=== PATIENT | female | born 1965 | race Hispanic/Latino ===

== ENCOUNTER 2025-01-21 15:55 | Emergency (ER) | payer SELFPAY ==
[~2025-01-21] VITALS: Ht 149.9 cm; Wt 45.4 kg
[2025-01-21 16:43] LABS: IMMATURE GRANULOCYTE ABSOLUTE 0.01 K/uL (0-1); NUCLEATED RED BLOOD CELLS 0.0 % (0.0-0.19); PLATELET COUNT (AUTO) 208 K/uL (130-400); RED BLOOD CELL COUNT(AUTO) 4.41 MIL/uL (4.00-5.50); RED CELL DISTRIBUTION WIDTH 13.1 % (11.0-15.5); WHITE BLOOD COUNT (AUTO) 4.5 K/uL (4.8-10.8)
[2025-01-21 16:59] LABS: CREATININE 0.5 mg/dL (0.5-1.0); GLOMERULAR FILTR. RATE CALC 108.0 mL/min (>90); GLUCOSE,RANDOM 233.0 mg/dL (70-105); SODIUM SERUM 137.0 mmol/L (136-145); UREA NITROGEN, BLOOD 18.0 mg/dL (7-18)
[2025-01-21 17:11] LABS: ASPARTATE AMINOTRANSFERASE 17.0 U/L (10-37); TOTAL PROTEIN, SERUM 7.2 g/dL (6.0-8.3)
[2025-01-21] MEDS ORDERED: IOHEXOL-350 75 ML VIAL IV ONE (17:46)
--- NOTE | 2025-01-21 19:25 | HMCIMG ---
CLINICAL INFORMATION Abdominal pain COMPARISON None. TECHNIQUE Volumetric helical CT images of the abdomen and pelvis with contrast FINDINGS Liver: Normal. Gallbladder: Surgically absent. Biliary System: Non-dilated. Pancreas: Normal. Spleen: Normal. Adrenals: Normal. Kidneys: 2.3 cm right renal cyst. No perinephric inflammation or hydronephrosis. Ureters: Normal. Bladder: Normal. Pelvis: Hysterectomy changes Stomach: Normal. Duodenum: Normal. Small Bowel: Normal. Colon: Normal. Appendix: Normal. Lymph Nodes: No lymphadenopathy. Peritoneum: No ascites or free air. Retroperitoneum: Normal. Vessels: Normal. Abdominal Wall: Normal. Bones: Normal. Lung Bases: Normal. Inferior Mediastinum: Normal. IMPRESSION No acute intra-abdominal findings. Status post cholecystectomy and hysterectomy. /[place]
[2025-01-21] MEDS ORDERED: DICY20TA2 PO (19:42)
--- NOTE | 2025-01-21 19:43 | ERN ---
ED Note History of Present Illness Stated Complaint: LLQ PAIN Chief Complaint: Abdominal Pain Time Seen by MD: 16:09 Time Seen by Midlevel: 16:11 Dictation: 59-year-old with no medical history coming in complaining of left upper and left lower abdominal pain and bloating. Patient states it has been going on for two weeks. Patient states she had a colon cleanse about one week ago then her symptoms were worsened so she went to [facility] one week ago where they did blood work and CT scan and told her everything was okay and discharged her. Parents states today she went to [place] where she was told by a doctor that she had an inflamed colon and needed to see a specialist. We then went to the urgent care today as well and was told that everything was normal, and then came here for another evaluation. Patient denies any fever, nausea or vomiting or diarrhea. Patient states her last menstrual bowel movement was yesterday and was soft, no blood. Patient states she is taking stool softeners. Allergies: Coded Allergies: No Known Allergies (Unverified Allergy, Unknown, 01/21/25) Past Medical History Past Medical History: Diabetes-Type II Surgical History: Hysterectomy, Cholecystectomy Surgical History Other: CYST Review of System Dictation Constitutional: Negative for fever,chills, and weight loss Eyes: Negative for injury, pain,redness, and discharge ENT: Negative for injury,pain or swelling Cardiovascular: Negative for chest pain, palpitations, and edema Respiratory: Negative for shortness of breath, cough, and wheezing, Abdomen/GI: Abdominal pain Back: Negative for injury and pain : Negative for injury, bleeding and discharge MS/Extremity: Negative for injury and deformity Skin: Negative for rash, and discoloration Neuro: Negative for headache, weakness, numbness, tingling, and seizure Psych: Negative for suicide ideation, homicidal ideation, and hallucinations Review of Systems: was completed Initial Vital Sign VS Vital Signs Date Time Temp Pulse Resp B/P (MAP) Pulse Ox O2 Delivery O2 Flow Rate FiO2 01/21/25 15:56 98.1 91 16 141/94 98 Room Air 0 01/21/25 18:22 21 Physical Exam Dictation General: awake, alert, NAD Head/Face: Normocephalic, atraumatic Eyes: PERRL, EOMI, vision at baseline ENT: oral cavity clear, TMs clear, no signs of infection Neck: Trachea midline, supple, no nuchal rigidity Cardiovascular: RRR, normal S1/S2, No MRGs, no JVD Respiratory: CTAB, no respiratory distress, No rales or wheezes Abdomen: Soft, non-tender, non-distended, normal bowel sounds, no guarding or rebound. Skin: Warm, dry, normal turgor, no rash MS/Extremity: Pulses equal, no cyanosis, neurovascular intact, FROM Neuro: COAx4, GCS 15, strength 5/5, CN 2-12 intact, normal cerebellar exam, normal gait, Psych: Normal behavior, mood, and affect normal Results (Laboratory/Radiology) Laboratory/Radiology Laboratory Tests Test 01/21/25 16:34 White Blood Count 4.5 K/uL (4.8-10.8) L Red Blood Count 4.41 MIL/uL (4.00-5.50) Hemoglobin 14.3 g/dL (12.0-16.0) Hematocrit 41.4 % (36-48) Mean Corpuscular Volume 93.9 fL (79-99) Mean Corpuscular Hemoglobin 32.4 pg (27.0-33.0) Mean Corpuscular Hemoglobin Concent 34.5 g/dL (32.0-36.0) Red Cell Distribution Width 13.1 % (11.0-15.5) Platelet Count 208 K/uL (130-400) Mean Platelet Volume 10.7 fL (7.5-10.5) H Immature Granulocyte % (Auto) 0.2 % (0-1) Neutrophils (%) (Auto) 44.1 % (40.0-77.0) Lymphocytes (%) (Auto) 46.1 % (21.0-51.0) Monocytes (%) (Auto) 7.4 % (3.0-13.0) Eosinophils (%) (Auto) 2.0 % (0.0-8.0) Basophils (%) (Auto) 0.2 % (0.0-5.0) Neutrophils # (Auto) 2.0 K/uL (1.8-7.7) Lymphocytes # (Auto) 2.1 K/uL (1.0-4.8) Monocytes # (Auto) 0.3 K/uL (0.1-1.0) Eosinophils # (Auto) 0.09 K/uL (0.00-0.70) Basophils # (Auto) 0.01 K/uL (0.00-0.20) Absolute Immature Granulocyte (auto 0.01 K/uL (0-1) Nucleated Red Blood Cells 0.0 % (0.0-0.19) Sodium Level 137 mmol/L (136-145) Potassium Level 4.2 mmol/L (3.5-5.1) Chloride Level 99 mmol/L (101-111) L Carbon Dioxide Level 27 mmol/L (21-32) Blood Urea Nitrogen 18 mg/dL (7-18) Creatinine 0.5 mg/dL (0.5-1.0) Glomerular Filtration Rate Calc 108 mL/min (>90) Random Glucose 233 mg/dL (70-105) H Total Calcium 9.3 mg/dL (8.5-10.1) Total Bilirubin 0.5 mg/dL (0.2-1.0) Aspartate Amino Transf (AST/SGOT) 17 U/L (10-37) Alanine Aminotransferase (ALT/SGPT) 30 U/L (12-78) Alkaline Phosphatase 110 U/L (50-136) Total Protein 7.2 g/dL (6.0-8.3) Albumin 3.6 g/dL (3.5-5.0) Labs Reviewed?: Yes CT Scan Comment: [place] [address] IMAGING REPORT Signed PATIENT: KRUNAL LEWIS MR#: [id number] : 1965 SEX: F AGE: 59 LOCATION: ED ORDER 18 STATUS: REG ER REPORT#: [id number] SERVICE [id number] REASON: lower upper and lower abdominal pain ORDERING PHYSICIAN: JEANNA DOWELL NP PROCEDURE: ABD PEL W - CT ABDOMEN/PELVIS W/CONTRAST CLINICAL INFORMATION Abdominal pain COMPARISON None. TECHNIQUE Volumetric helical CT images of the abdomen and pelvis with contrast FINDINGS Liver: Normal. Gallbladder: Surgically absent. Biliary System: Non-dilated. Pancreas: Normal. Spleen: Normal. Adrenals: Normal. Kidneys: 2.3 cm right renal cyst. No perinephric inflammation or hydronephrosis. Ureters: Normal. Bladder: Normal. Pelvis: Hysterectomy changes Stomach: Normal. Duodenum: Normal. Small Bowel: Normal. Colon: Normal. Appendix: Normal. Lymph Nodes: No lymphadenopathy. Peritoneum: No ascites or free air. Retroperitoneum: Normal. Vessels: Normal. Abdominal Wall: Normal. Bones: Normal. Lung Bases: Normal. Inferior Mediastinum: Normal. IMPRESSION No acute intra-abdominal findings. Status post cholecystectomy and hysterectomy. /[place] DICTATED BY: KILLIAN SHEETS MD DATE: 01/21/252023 ELECTRONICALLY SIGNED BY: KILLIAN SHEETS MD DATE: 01/21/252023 ED Course ED Course Orders Procedure Category Date Status Time Cbc With Differential LAB 01/21/25 Complete 16:17 Comprehensive LAB 01/21/25 Complete Metabolic Panel 16:17 Urinalysis Profile LAB 01/21/25 Logged 16:17 Ct Abdomen/Pelvis CT 01/21/25 Resulted W/Contrast 16:17 Iohexol (Omnipaque) PHA 01/21/25 Complete 17:46 Ondansetron 4mg Inj PHA 01/21/25 Complete (Zofran 4mg Inj) 17:56 Morphine 2mg Syg PHA 01/21/25 Complete (Morphine 2mg Syg) 17:56 Current Medications Medications (Trade) Dose Ordered Sig/Tyrone Route PRN Reason Start Time Stop Time Status Last Admin Dose Admin Iohexol (Omnipaque) 75 ml STK-MED ONCE IV 01/21/25 17:46 01/21/25 17:52 DC Morphine Sulfate (morPHINE 2MG SYG) 2 mg ONCE STAT IVP 01/21/25 17:56 01/21/25 18:01 DC 01/21/25 18:14 Ondansetron HCl (zoFRAN 4MG INJ) 4 mg ONCE STAT IVP 01/21/25 17:56 01/21/25 18:01 DC 01/21/25 18:14 Vital Signs Date Time Temp Pulse Resp B/P (MAP) Pulse Ox O2 Delivery O2 Flow Rate FiO2 01/21/25 18:22 98.1 98 18 131/65 98 Room Air* 0 21 01/21/25 15:56 98.1 91 16 141/94 98 Room Air 0 Medical Decision Making MDM MDM: 59-year-old with no medical history coming in complaining of left upper and left lower abdominal pain and bloating. Patient states it has been going on for two weeks. Patient states she had a colon cleanse about one week ago then her symptoms were worsened so she went to [facility] one week ago where they did blood work and CT scan and told her everything was okay and discharged her. Parents states today she went to [place] where she was told by a doctor that she had an inflamed colon and needed to see a specialist. We then went to the urgent care today as well and was told that everything was normal, and then came here for another evaluation. Patient denies any fever, nausea or vomiting or diarrhea. Patient states her last menstrual bowel movement was yesterday and was soft, no blood. Patient states she is taking stool softeners. CBC is unremarkable. Chemistry unremarkable. CT scan shows no acute abdominal pathology. Discussed findings with family member and patient. Discussed her next step is to follow up with a medical assistant ob gyn for further evaluation, she might need a colonoscopy. Educated on signs and symptoms of when to return back to the emergency room. Patient verbalized understanding, answered all questions. Differential diagnosis: Colitis, enteritis, SBO Rationale: Tests considered and ordered secondary to shared decision making include: Previous outside records reviewed: Old ER visits. Risk of complication and/or morbidity or mortality of patient management: None Medications-Per medication reconciliation Need for hospitalization: Patient does not meet criteria for hospitalization. Need for emergency major/minor surgery: No There are no social concerns with this patient. Prescription drug management Prescriptions will include symptomatic care Patient's prior external medical records from other ER visits were reviewed by me as indicated. Prior testing and results from previous visits were reviewed. Prior tests were taken into account with medical decision making and resource utilization, independent historian/historians were used to obtain complete medical history. I independently interpreted the test that were performed, results were reviewed by me and considered findings on radiology if ordered. Medical management and examination interpretation discussions were had by me with other qualified healthcare professionals as indicated for the patient's care. DX & DISP Disposition: Discharge Departure Impression: Primary Impression: Abdominal pain Condition: Stable Scripts Dicyclomine HCl (Bentyl) 20 Mg Tab 1 TAB PO BID PRN for PAIN for 10 Days, #20 TAB 0 Refills Prov: DOWELL,JEANNA INSULATION ENGINEMAN 01/21/25 Additional Instructions: Follow up with the specialists as needed. Referrals: SELF,REFERRAL (PCP) TRIPP PENDLETON MD Time of Disposition: 19:41 I have reviewed the case, and I agree with, Diagnosis and Plan JEANNA DOWELL NP Jan 21, 2025 19:43
[2025-01-21 20:17] VITALS: BP 134/90; PULSE 77; RESP 18; TEMP 98.3; O2SAT 98
== END 2025-01-21 20:19 | disposition home or self-care (01) ==
LOC: EDH 15:55
DX: R10.32 Left lower quadrant pain (principal); E11.9 Type 2 diabetes mellitus without complications; Z90.49 Acquired absence of other specified parts of digestive tract; Z90.710 Acquired absence of both cervix and uterus
CPT/HCPCS: 99285; 74177; 96374; 96375; 80053; 85025; 36415; J2270; J2405; Q9967

== ENCOUNTER 2025-05-10 13:45 | Inpatient (IN) | payer BC ==
[~2025-05-10] VITALS: Ht 149.9 cm; Wt 46.9 kg
[~2025-05-10 13:45] MED LIST: DICY20TA2 PO
[2025-05-10 14:22] LABS: IMMATURE GRANULOCYTE ABSOLUTE 0.01 K/uL (0-1); NUCLEATED RED BLOOD CELLS 0.0 % (0.0-0.19); PLATELET COUNT (AUTO) 218 K/uL (130-400); RED BLOOD CELL COUNT(AUTO) 4.79 MIL/uL (4.00-5.50); RED CELL DISTRIBUTION WIDTH 13.0 % (11.0-15.5); WHITE BLOOD COUNT (AUTO) 5.9 K/uL (4.8-10.8)
[2025-05-10 14:33] LABS: CREATININE 0.6 mg/dL (0.5-1.0); GLOMERULAR FILTR. RATE CALC 103.0 mL/min (>90); GLUCOSE,RANDOM 162.0 mg/dL (70-105); SODIUM SERUM 136.0 mmol/L (136-145); UREA NITROGEN, BLOOD 15.0 mg/dL (7-18)
[2025-05-10 14:42] LABS: ASPARTATE AMINOTRANSFERASE 13.0 U/L (10-37); TOTAL PROTEIN, SERUM 7.3 g/dL (6.0-8.3)
[2025-05-10 15:10] LABS: APPEARANCE,URINE CLEAR (CLEAR); GLUCOSE, URINE (UA) >=1000 mg/dL (NEGATIVE); LEUKOCYTE ESTERASE ,URINE NEGATIVE Leu/uL (NEGATIVE); NITRATE,URINE NEGATIVE (NEGATIVE); OCCULT BLOOD,URINE NEGATIVE (NEGATIVE)
[2025-05-10 15:11] LABS: ADD UA MICROSCOPIC YES
[2025-05-10 15:12] LABS: SQUAMOUS EPITHELIAL CELL,UR RARE /HPF (0-2)
[2025-05-10] MEDS: 0.9%NACL 1000ML 1,000 ML IV ONE (15:13)
[2025-05-10] MEDS ORDERED: IOHEXOL-350 75 ML VIAL IV ONE (15:23)
--- NOTE | 2025-05-10 17:19 | HMCIMG ---
EXAMINATION: CT Abdomen and Pelvis with Intravenous Contrast CLINICAL INDICATION: Abdominal pain. TECHNIQUE: Contrast-enhanced CT of the abdomen and pelvis was performed. Axial images were acquired and reconstructed in multiplanar projections using soft tissue and bone algorithms. Delayed urographic phase images were obtained. RADIATION DOSE: CTDIvol: 11 mGy DLP: 500.9 mGycm COMPARISON: Prior CT abdomen and pelvis with contrast dated January 22, 2025, which demonstrated post-cholecystectomy and post-hysterectomy status without acute abnormality.FINDINGS: Lower Chest: No acute abnormality is identified in the visualized lung bases. Liver: The liver demonstrates diffuse fatty infiltration and is enlarged, measuring approximately 17.2 cm in the midclavicular line. A hyperenhancing lesion is again seen in the right hepatic lobe measuring approximately 1.5 1.6 1.2 cm, series 2, image 20/96. It is not visualized in the delayed images in the available field of view. No additional focal hepatic lesion is identified. Biliary System: Post-cholecystectomy state is noted. There is mild prominence of the bilobar intrahepatic bile ducts and the common bile duct, which measures up to 1.0 cm, with smooth distal tapering and no evidence of obstructing calculus or mass. These findings are favored to be physiologic in the post-cholecystectomy setting. Spleen: The spleen is unremarkable in size and attenuation. Pancreas: The pancreas is unremarkable without focal lesion or pancreatic ductal dilatation. Adrenal Glands: A left adrenal nodule measuring approximately 1.0 0.6 cm is present. The right adrenal gland is unremarkable. Kidneys and Urinary Tract: A right renal parapelvic cyst measures approximately 3.0 1.4 cm. No hydroureteronephrosis is seen. Delayed urographic phase images demonstrate normal and symmetric contrast excretion through both renal pelvicalyceal systems and ureters. No renal, ureteral, vesical calculus is identified. Bowel and Appendix: Multiple fluid-filled small bowel loops are present in the lower abdomen without significant dilatation, compatible with mild acute enteritis. A moderate amount of fecal material is present within the colon. The appendix is unremarkable, series 2, image 58/96. Mesentery and Peritoneal Cavity: No free intraperitoneal air or fluid is identified. Vasculature: The abdominal aorta demonstrates atheromatous calcification without aneurysm or dissection. Pelvic Organs: Post-hysterectomy status is noted. No adnexal mass is identified. Abdominal Wall: No significant abnormality is identified. Bones and Spine: There is minimal levoscoliosis of the lumbar spine with the apex at L3. Mild degenerative changes are present. Small central disc protrusions are seen at the L3L4, L4L5, and L5S1 levels, causing mild thecal sac indentation.IMPRESSION: * Mild acute enteritis. * Hyperenhancing lesion in the right hepatic lobe measuring 1.5 1.6 1.2 cm; imaging features are indeterminate. Further characterization with dedicated liver MRI is recommended if clinically warranted. * Post-cholecystectomy state with mild physiologic prominence of the intrahepatic bile ducts and common bile duct measuring up to 1.0 cm, without evidence of obstruction, stable compared with prior imaging. * Hepatic steatosis with hepatomegaly. * Bosniak class I right renal cyst. * Small left adrenal nodule, stable in appearance. * As compared with the prior CT examination dated January 22, 2025, mild acute enteritis is a new findings. The rest of the findings remain stable. /[place]
--- NOTE | 2025-05-10 18:08 | EKG ---
[facility] Test Date: 2025-05-10 Test Time: 14:29:45 Pat Name: KRUNAL LEWIS Department: ED Room: 326 Gender: F Power Barker: [id number] : 1965 Requested By: ARJUN BRICE Order Number: [id number] Reading MD: Ted Lopez Measurements Intervals [place] Rate: 87 P: -9 MO: 139 QRS: -28 QRSD: 80 T: 32 QT: 374 QTc: 450 Interpretive Statements Sinus rhythm No previous ECG available for comparison Electronically Signed On 05-10-2025 21:53:18 BUMPER OPERATOR by Ted Lopez Please click the below link to view image of tracing.
--- NOTE | 2025-05-10 19:10 | NUR ---
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
[2025-05-10] MEDS ORDERED: ALBUTEROL 0.083% 2.5 MG/3 ML INH IH PRN (20:00)
--- NOTE | 2025-05-10 20:05 | ERN ---
ED Note History of Present Illness Stated Complaint: ABD PAIN Chief Complaint: Abdominal Pain Time Seen by MD: 13:47 Time Seen by Midlevel: 13:47 Dictation: The patient is a 60-year-old female with a history of diabetes, cholecystectomy, hysterectomy who presents to the emergency department with complaints of left upper abdominal pain. Patient reports that she has been having the syndrome intermediate for six month but reports this episode started a week ago. Reports nausea nonbloody vomiting. Denies any diarrhea or constipation. Denies any fevers. Patient reports she had she has been seen by community integration specialist and have not been able to find what is causing her pain. Allergies: Coded Allergies: No Known Allergies (Unverified Allergy, Unknown, 01/21/25) Home Meds Active Scripts Dicyclomine HCl (Bentyl) 20 Mg Tab, 1 TAB PO BID PRN for PAIN for 10 Days, #20 TAB 0 Refills Prov:DOWELL,JEANNA PERSONNEL CLERKS SUPERVISOR 01/21/25 Past Medical History Past Medical History: Diabetes-Type II Additional Past Medical Hx: ABD HERNIA Surgical History: Hysterectomy, Cholecystectomy Surgical History Other: EGD, COLONOSCOPY RN Note Reviewed/Agreed w/PFSH: Yes Review of System Dictation Constitutional: Negative for fever,chills, and weight loss Eyes: Negative for injury, pain,redness, and discharge ENT: Negative for injury,pain or swelling Cardiovascular: Negative for chest pain, palpitations, and edema Respiratory: Negative for shortness of breath, cough, and wheezing, Abdomen/GI: Negative for diarrhea, and constipation positive for abdominal pain, nausea, vomiting Back: Negative for injury and pain : Negative for injury, bleeding and discharge MS/Extremity: Negative for injury and deformity Skin: Negative for rash, and discoloration Neuro: Negative for headache, weakness, numbness, tingling, and seizure Psych: Negative for suicide ideation, homicidal ideation, and hallucinations Initial Vital Sign VS Vital Signs Date Time Temp Pulse Resp B/P (MAP) Pulse Ox O2 Delivery O2 Flow Rate FiO2 05/10/25 13:47 99.1 104 16 169/113 99 Room Air 0 05/10/25 13:50 21 Physical Exam Dictation Vital Signs reviewed General Appearance: Alert, oriented x 3, no acute distress, well developed, nourished. Head and Face: non-traumatic. Eyes: PERRL, pink conjunctivas, eyelid no trauma, anterior chamber with arcus senilis. Ears: Pinnas intact and no signs of trauma or erythema ear canals clear and no discharge TM no erythema Nose: No discharge, no bleeding. Oropharynx: Mouth normal, tongue pink. pharynx clear,no erythema, tonsils no exudates, no abscesses noted, mucous membrane moist Neck: Supple, non-tender, no thyromegaly, no masses, no JVD, no bruits Breast:Deferred Chest:No tenderness, no crepitus, no paradoxical movement, no retractions Lungs:Clear, well-ventilated, symmetric, no rales, no wheezing, no rhonchi, no stridor, good breath sounds bilaterally Heart: Regular rate, regular rhythm, no murmur, no gallops Vascular: no peripheral edema, Abdomen: Soft, positive bowel sounds, nondistended, no guarding, Tenderness to left upper and left lower no rebound, no masses no hepatomegaly, no splenomegaly, no Pollard's sign, no hernias. Rectal: Deferred Genital: Deferred Neurological: Normal speech, motor function intact, sensory function intact Musculoskeletal: Neck nontender, full range of motion, back nontender, full range of motion, Extremities: nontender, full range of motion Skin: Color pink, dry, no turgor, no rash, no lacerations, no abrasions, no contusions. Lymphatic: Deferred Results (Laboratory/Radiology) Laboratory/Radiology Laboratory Tests Test 05/10/25 14:11 05/10/25 14:55 White Blood Count 5.9 K/uL (4.8-10.8) Red Blood Count 4.79 MIL/uL (4.00-5.50) Hemoglobin 15.2 g/dL (12.0-16.0) Hematocrit 44.8 % (36-48) Mean Corpuscular Volume 93.5 fL (79-99) Mean Corpuscular Hemoglobin 31.7 pg (27.0-33.0) Mean Corpuscular Hemoglobin Concent 33.9 g/dL (32.0-36.0) Red Cell Distribution Width 13.0 % (11.0-15.5) Platelet Count 218 K/uL (130-400) Mean Platelet Volume 10.5 fL (7.5-10.5) Immature Granulocyte % (Auto) 0.2 % (0-1) Neutrophils (%) (Auto) 46.2 % (40.0-77.0) Lymphocytes (%) (Auto) 45.0 % (21.0-51.0) Monocytes (%) (Auto) 6.8 % (3.0-13.0) Eosinophils (%) (Auto) 1.5 % (0.0-8.0) Basophils (%) (Auto) 0.3 % (0.0-5.0) Neutrophils # (Auto) 2.7 K/uL (1.8-7.7) Lymphocytes # (Auto) 2.6 K/uL (1.0-4.8) Monocytes # (Auto) 0.4 K/uL (0.1-1.0) Eosinophils # (Auto) 0.09 K/uL (0.00-0.70) Basophils # (Auto) 0.02 K/uL (0.00-0.20) Absolute Immature Granulocyte (auto 0.01 K/uL (0-1) Nucleated Red Blood Cells 0.0 % (0.0-0.19) Sodium Level 136 mmol/L (136-145) Potassium Level 3.7 mmol/L (3.5-5.1) Chloride Level 101 mmol/L (101-111) Carbon Dioxide Level 19 mmol/L (21-32) L Blood Urea Nitrogen 15 mg/dL (7-18) Creatinine 0.6 mg/dL (0.5-1.0) Glomerular Filtration Rate Calc 103 mL/min (>90) Random Glucose 162 mg/dL (70-105) H Total Calcium 9.2 mg/dL (8.5-10.1) Total Bilirubin 0.6 mg/dL (0.2-1.0) Direct Bilirubin 0.1 mg/dL (0.0-0.3) Aspartate Amino Transf (AST/SGOT) 13 U/L (10-37) Alanine Aminotransferase (ALT/SGPT) 22 U/L (12-78) Alkaline Phosphatase 127 U/L (50-136) Troponin I High Sensitivity 25 ng/L (4-50) Total Protein 7.3 g/dL (6.0-8.3) Albumin 3.9 g/dL (3.5-5.0) Lipase 59 U/L (16-77) Urine Color LIGHT-YELLOW (YELLOW) Urine Appearance CLEAR (CLEAR) Urine pH 5.5 (5.0-8.0) Urine Specific [place] 1.044 (1.001-1.031) Urine Protein TRACE mg/dL (NEGATIVE) H Urine Glucose (UA) >=1000 mg/dL (NEGATIVE) H Urine Ketones 150 mg/dL (NEGATIVE) H Urine Occult Blood NEGATIVE (NEGATIVE) Urine Nitrate NEGATIVE (NEGATIVE) Urine Bilirubin NEGATIVE mg/dL (NEGATIVE) Urine Urobilinogen 0.2 mg/dL (0.2-1.0) Urine Leukocyte Esterase NEGATIVE Frank/uL Urine RBC 0-1 /HPF (0-1) Urine WBC 0-1 /HPF (0-1) Urine Squamous Epithelial Cells RARE /HPF (0-2) Urine Bacteria None /HPF (None Seen) Labs Reviewed?: Yes EKG: (+) rhythm (Sinus rhythm) EKG Comment: Date:05/10/2025 Time:1429 Ventricular rate:87 NE interval:139 QRS duration:80 QT/QTc:374/450 EKG interpretation: Sinus rhythm Reviewed by ED Attending no STEMI ED Course ED Course Orders Procedure Category Date Status Time Cbc With Differential LAB 05/10/25 Complete 14:08 Troponin I High LAB 05/10/25 Complete Sensitivity 14:08 Urinalysis Profile LAB 05/10/25 Complete 14:08 12 Lead Ekg Tracing- EKG 05/10/25 Complete Technical 14:08 0.9%Nacl 1000ml (Ns PHA 05/10/25 Complete 1000ml) 14:30 Morphine 4mg Syg PHA 05/10/25 Complete (Morphine 4mg Syg) 14:30 Ondansetron 4mg Inj PHA 05/10/25 Complete (Zofran 4mg Inj) 14:30 Pantoprazole 40mg Inj PHA 05/10/25 Complete (Protonix 40mg Inj 14:30 Lipase LAB 05/10/25 Complete 14:08 Basic Metabolic Panel LAB 05/10/25 Complete 14:08 Hepatic Function Panel LAB 05/10/25 Complete 14:08 Ct Abdomen/Pelvis CT 05/10/25 Resulted W/Contrast 15:11 Iohexol (Omnipaque) PHA 05/10/25 Complete 15:23 Ketorolac PHA 05/10/25 Complete Tromethamine 30mg/Ml 17:00 Edm Admit Bridge Order ADM 05/10/25 Transmitted 18:32 Lactic Acid LAB 05/10/25 Logged 19:55 Current Medications Medications (Trade) Dose Ordered Sig/Tyrone Route PRN Reason Start Time Stop Time Status Last Admin Dose Admin Iohexol (Omnipaque) 75 ml STK-MED ONCE IV 05/10/25 15:23 05/10/25 15:23 DC Ketorolac Tromethamine (toRADol) 30 mg ONCE ONCE IVP 05/10/25 17:00 05/10/25 17:01 DC 05/10/25 18:37 Morphine Sulfate (morPHINE 4MG SYG) 4 mg ONCE ONCE IVP 05/10/25 14:30 05/10/25 14:31 DC 05/10/25 15:10 Ondansetron HCl (zoFRAN 4MG INJ) 4 mg ONCE ONCE IVP 05/10/25 14:30 05/10/25 14:31 DC 05/10/25 15:07 Pantoprazole Sodium (PROTonix 40MG INJ) 40 mg ONCE ONCE IVP 05/10/25 14:30 05/10/25 14:31 DC 05/10/25 15:12 Sodium Chloride 1,000 ml @ 0 mls/hr ONCE ONCE IV 05/10/25 14:30 05/10/25 14:31 DC 05/10/25 15:13 Vital Signs Date Time Temp Pulse Resp B/P (MAP) Pulse Ox O2 Delivery O2 Flow Rate FiO2 05/10/25 18:52 98.2 84 12 158/90 98 Room Air* 0 05/10/25 13:50 99.1 104 16 169/113 99 Room Air* 0 05/10/25 13:47 99.1 104 16 169/113 99 Room Air 0 Medical Decision Making MDM MDM: The patient is a 60-year-old female with a history of diabetes, cholecystectomy, hysterectomy who presents to the emergency department with complaints of left upper abdominal pain. Patient reports that she has been having the syndrome intermediate for six month but reports this episode started a week ago. Reports nausea nonbloody vomiting. Denies any diarrhea or constipation. Denies any fevers. Patient reports she had she has been seen by community integration specialist and have not been able to find what is causing her pain. CBC showed no leukocytosis, no anemia, chemistry showed no electrolyte imbalance, negative lipase, negative liver enzymes, urinalysis is unremarkable. CT showed enteritis no other acute finding. Patient giving pain medication. Continues with a lot of pain. We will be admitting patient for further evaluation and pain management. Differential diagnosis: Gastroenteritis, pancreatitis, gastritis, ACS, bowel obstruction Comorbidities: Diabetes, cholecystectomy Tests considered and not ordered secondary to shared decision making include: none Previous outside records reviewed: none Risk of complication and/or morbidity or mortality of patient management: The patient meets criteria for admission. Need for emergency major/minor surgery: No There are no social concerns with this patient. I independently interpreted the tests I ordered (labs, urinalysis, etc.). I discussed the case with the hospitalist for admission. [facility] who accepts admission I discussed the case with the following specialists: none. Historian: pateint. I independently interpreted imaging studies and EKGs that I ordered (US, CT, XR, EKG, etc.). External chart review: none. Medical management and examination interpretation discussions were had by me with other qualified healthcare professionals as indicated for the patient's care. DX & DISP Disposition: Inpatient Decision to Admit Date: May 10, 2025 Decision to Admit Time: 18:32 Departure Impression: Primary Impression: Intractable abdominal pain Condition: Stable Referrals: ALDO NGUYEN (PCP) I have reviewed the case, and I agree with, Diagnosis and Plan ARJUN BRICE May 10, 2025 20:05
--- NOTE | 2025-05-10 20:10 | HP ---
[facility] HISTORY & PHYSICAL Date Patient Seen: May 10, 2025 Time of Visit: 20:08 Supervising Physician: Dr. Javy Goins Primary Care Physician: Dr Ordonez Outpatient Specialists: [ ] Inpatient Consults: [ ] PROBLEM LIST: Acute mild enteritis, POA Acute abdominal pain, POA Hypertension, POA DM type II, POA Hepatic steatosis, POA Hepatomegaly, POA Hepatic lesion seen on CT of the abdomen,hyperenhancing lesion in the right hepatic lobe measuring 1.5 x 1.6 x 1.2 cm imaging features are indeterminate PLAN: Admit to medical-surgical floor VS per unit protocol Clear liquid diet Continue IV fluids Multimodal pain relief GI consult in a.m. Keep serum glucose less than 150 ISS and fingerstick per unit protocol Up ad jonathon CBC, CMP, magnesium level daily HPI: 60-year-old female with past medical history of DM type two who presented to ED via private vehicle with complaint of intractable abdominal pain with associated episodic vomiting and found to have mild enteritis. Per patient she was evaluated by Dr. Jasso and underwent endoscopy, and according to patient she was informed by Dr. Jasos that there is no significant findings. Patient was also evaluated in [employer] recently in underwent x-ray and ultrasonography, cannot confirm what exactly is the finding, they do not have the official reading of the ultrasound what they have is only a picture. She presented today in ED with above-mentioned complaint, CTA of the abdomen was done and showed mild acute enteritis, hyperenhancing lesion in the right hepatic lobe measuring 1.5 x 1.6 x 1.2 cm imaging features are indeterminate. There is also hepatic steatosis with hepatomegaly. Her CBC did not reveal any acute infection or anemia, her chemistry unrevealing for any acute electrolyte or kidney dysfunction. In ED patient was given Protonix, IV morphine with no significant improvement on her abdominal pain. On examination patient is crying, abdomen is soft, nondistended, some tenderness on the left upper quadrant on palpation. Patient denies any headache, chest pain, shortness of breath, diarrhea, cough, or flu- like symptoms. Patient denies any smoking, alcohol intake, or illicit drug use. PAST MEDICAL HX: see above PAST SURGICAL HX: noncontributory SOCIAL HISTORY: No tobacco, ETOH, or illicit drug use Coded Allergies: No Known Allergies (Unverified Allergy, Unknown, 01/21/25) REVIEW OF SYSTEMS: 12 point ROS reviewed with patient. Pertinent positives mentioned above. Otherwise negative. PHYSICAL EXAM: GENERAL: alert, weak, awake oriented x 3 HEENT: EOMI, Sclera non icteric, moist mucosa NECK: Supple, no JVD, trachea midline LUNGS: Clear breath sounds bilaterally. No wheezes HEART: Regular rate and rhythm. Normal S1 and S2, without murmurs ABD: Abdomen soft, nontender. Bowel sounds present, tenderness to left upper quadrant on palpation EXT: No clubbing cyanosis or edema NEURO: Alert and oriented to person, follows commands Vital Signs (last 8hr) Date Time Temp Pulse Resp B/P (MAP) Pulse Ox O2 Delivery O2 Flow Rate FiO2 05/10/25 18:52 98.2 84 12 158/90 98 Room Air* 0 21 05/10/25 13:50 99.1 104 16 169/113 99 Room Air* 0 05/10/25 13:47 99.1 104 16 169/113 99 Room Air 0 LABS: Hematology Labs: Test 05/10/25 14:11 Range/Units White Blood Count 5.9 4.8-10.8 K/uL Red Blood Count 4.79 4.00-5.50 MIL/uL Hemoglobin 15.2 12.0-16.0 g/dL Hematocrit 44.8 36-48 % Mean Corpuscular Volume 93.5 79-99 fL Mean Corpuscular Hemoglobin 31.7 27.0-33.0 pg Mean Corpuscular Hemoglobin Concent 33.9 32.0-36.0 g/dL Red Cell Distribution Width 13.0 11.0-15.5 % Platelet Count 218 130-400 K/uL Mean Platelet Volume 10.5 7.5-10.5 fL Immature Granulocyte % (Auto) 0.2 0-1 % Neutrophils (%) (Auto) 46.2 40.0-77.0 % Lymphocytes (%) (Auto) 45.0 21.0-51.0 % Monocytes (%) (Auto) 6.8 3.0-13.0 % Eosinophils (%) (Auto) 1.5 0.0-8.0 % Basophils (%) (Auto) 0.3 0.0-5.0 % Neutrophils # (Auto) 2.7 1.8-7.7 K/uL Lymphocytes # (Auto) 2.6 1.0-4.8 K/uL Monocytes # (Auto) 0.4 0.1-1.0 K/uL Eosinophils # (Auto) 0.09 0.00-0.70 K/uL Basophils # (Auto) 0.02 0.00-0.20 K/uL Absolute Immature Granulocyte (auto 0.01 0-1 K/uL Nucleated Red Blood Cells 0.0 0.0-0.19 % Chemistry Labs: Test 05/10/25 14:11 Range/Units Sodium Level 136 136-145 mmol/L Potassium Level 3.7 3.5-5.1 mmol/L Chloride Level 101 101-111 mmol/L Carbon Dioxide Level 19 L 21-32 mmol/L Blood Urea Nitrogen 15 7-18 mg/dL Creatinine 0.6 0.5-1.0 mg/dL Glomerular Filtration Rate Calc 103 >90 mL/min Random Glucose 162 H 70-105 mg/dL Total Calcium 9.2 8.5-10.1 mg/dL Total Bilirubin 0.6 0.2-1.0 mg/dL Direct Bilirubin 0.1 0.0-0.3 mg/dL Aspartate Amino Transf (AST/SGOT) 13 10-37 U/L Alanine Aminotransferase (ALT/SGPT) 22 12-78 U/L Alkaline Phosphatase 127 50-136 U/L Troponin I High Sensitivity 25 4-50 ng/L Total Protein 7.3 6.0-8.3 g/dL Albumin 3.9 3.5-5.0 g/dL Lipase 59 16-77 U/L DIAGNOSTICS / RADIOLOGY RESULTS: DATE: EXAMINATION: CT Abdomen and Pelvis with Intravenous Contrast CLINICAL INDICATION: Abdominal pain. TECHNIQUE: Contrast-enhanced CT of the abdomen and pelvis was performed. Axial images were acquired and reconstructed in multiplanar projections using soft tissue and bone algorithms. Delayed urographic phase images were obtained. RADIATION DOSE: CTDIvol: 11 mGy DLP: 500.9 mGycm COMPARISON: Prior CT abdomen and pelvis with contrast dated January 22, 2025, which demonstrated post-cholecystectomy and post-hysterectomy status without acute abnormality.FINDINGS: Lower Chest: No acute abnormality is identified in the visualized lung bases. Liver: The liver demonstrates diffuse fatty infiltration and is enlarged, measuring approximately 17.2 cm in the midclavicular line. A hyperenhancing lesion is again seen in the right hepatic lobe measuring approximately 1.5 1.6 1.2 cm, series 2, image 20/96. It is not visualized in the delayed images in the available field of view. No additional focal hepatic lesion is identified. Biliary System: Post-cholecystectomy state is noted. There is mild prominence of the bilobar intrahepatic bile ducts and the common bile duct, which measures up to 1.0 cm, with smooth distal tapering and no evidence of obstructing calculus or mass. These findings are favored to be physiologic in the post-cholecystectomy setting. Spleen: The spleen is unremarkable in size and attenuation. Pancreas: The pancreas is unremarkable without focal lesion or pancreatic ductal dilatation. Adrenal Glands: A left adrenal nodule measuring approximately 1.0 0.6 cm is present. The right adrenal gland is unremarkable. Kidneys and Urinary Tract: A right renal parapelvic cyst measures approximately 3.0 1.4 cm. No hydroureteronephrosis is seen. Delayed urographic phase images demonstrate normal and symmetric contrast excretion through both renal pelvicalyceal systems and ureters. No renal, ureteral, vesical calculus is identified. Bowel and Appendix: Multiple fluid-filled small bowel loops are present in the lower abdomen without significant dilatation, compatible with mild acute enteritis. A moderate amount of fecal material is present within the colon. The appendix is unremarkable, series 2, image 58/96. Mesentery and Peritoneal Cavity: No free intraperitoneal air or fluid is identified. Vasculature: The abdominal aorta demonstrates atheromatous calcification without aneurysm or dissection. Pelvic Organs: Post-hysterectomy status is noted. No adnexal mass is identified. Abdominal Wall: No significant abnormality is identified. Bones and Spine: There is minimal levoscoliosis of the lumbar spine with the apex at L3. Mild degenerative changes are present. Small central disc protrusions are seen at the L3L4, L4L5, and L5S1 levels, causing mild thecal sac indentation.IMPRESSION: * Mild acute enteritis. * Hyperenhancing lesion in the right hepatic lobe measuring 1.5 1.6 1.2 cm; imaging features are indeterminate. Further characterization with dedicated liver MRI is recommended if clinically warranted. * Post-cholecystectomy state with mild physiologic prominence of the intrahepatic bile ducts and common bile duct measuring up to 1.0 cm, without evidence of obstruction, stable compared with prior imaging. * Hepatic steatosis with hepatomegaly. * Bosniak class I right renal cyst. * Small left adrenal nodule, stable in appearance. * As compared with the prior CT examination dated January 22, 2025, mild acute enteritis is a new findings. The rest of the findings remain stable. PLAN NEURO: Minimize central acting medications as possible. Maintain fall precautions, adequate lighting during the day PULMONARY: Supplemental 02 as needed. Maintain aspiration precautions at all times CARDIOVASCULAR: Follow hemodynamics. Vital signs per facility protocol GI & NUTRITION: Continue with nutritional support. Continue stool softeners and laxatives as needed. KIDNEYS & ELECTROLYTES: Strict monitoring of intake, output and overall fluid balance. Avoid nephrotoxic medications to the extent possible. Medications to be dosed according to renal function. Monitor electrolytes and replace as needed ENDOCRINE: Maintain blood glucose between 100-180 at all times. Hypoglycemia protocol in place INFECTIOUS DISEASE: Trend temperature, WBC and procalcitonin level Follow cultures, deescalate antibiotics as soon as possible. Panculture if new onset fever ONCOLOGY/HEMATOLOGY/COAGULATION: Monitor for s/s of bleeding Monitor hemoglobin, coagulation studies as needed SKIN: Pressure ulcer prevention per facility protocol Specialty mattress ORTHO/REHAB: Continue PT/OT Prophylaxis: Continue GI and DVT prophylaxis Code Status: Full Resuscitation Disposition: TBD Supervising physician: WINDY Fernandes AGACNP May 10, 2025 20:10
[2025-05-10 20:16] VITALS: PULSE 90; RESP 18; O2SAT 98
[2025-05-10] MEDS: LACTATED RINGERS 1000ML 1,000 ML IV SCH (21:23)
[2025-05-10] MEDS: LIDOCAINE HCL 2% VISCOUS 15 ML UDCUP PO ONE (21:23)
--- NOTE | 2025-05-10 21:24 | NUR ---
REPORT GIVEN TO CHE MORSE.
[2025-05-10 22:03] VITALS: BP 140/83; PULSE 82; RESP 18; TEMP 98.3
[2025-05-10 22:30] VITALS: O2SAT 96
[2025-05-11] VITALS (8 sets, daily range): BP systolic 128–134; BP diastolic 74–80; PULSE 72–92; RESP 16–20; TEMP 97.6–98.5; O2SAT 97–98
[2025-05-11 05:15] LABS: IMMATURE GRANULOCYTE ABSOLUTE 0.01 K/uL (0-1); NUCLEATED RED BLOOD CELLS 0.0 % (0.0-0.19); PLATELET COUNT (AUTO) 179 K/uL (130-400); RED BLOOD CELL COUNT(AUTO) 4.05 MIL/uL (4.00-5.50); RED CELL DISTRIBUTION WIDTH 13.1 % (11.0-15.5); WHITE BLOOD COUNT (AUTO) 5.1 K/uL (4.8-10.8)
[2025-05-11 05:34] LABS: CREATININE 0.6 mg/dL (0.5-1.0); GLOMERULAR FILTR. RATE CALC 103.0 mL/min (>90); GLUCOSE,RANDOM 131.0 mg/dL (70-105); PHOSPHORUS 3.8 mg/dL (2.5-4.9); SODIUM SERUM 135.0 mmol/L (136-145); UREA NITROGEN, BLOOD 10.0 mg/dL (7-18)
[2025-05-11] MEDS: MAGNESIUM 2GM PREMIX 50ML 50 ML IV PRN (10:35)
--- NOTE | 2025-05-11 10:44 | NUR ---
DCP:HOME Pt currently lives at home with his son. Pt does not have any DME, home health, or provider services. Pt is able to complete ADLs independently. PCP is Dr Hubert Ordonez and uses [facility] for any RX needs. At DC pt will want to go home and family can assist with transportation.
--- NOTE | 2025-05-11 13:29 | PN ---
[facility] PROGRESS NOTE Date Patient Seen: May 11, 2025 Time of Visit: 13:13 Supervising Physician: Anamaria Goins Primary Care Physician: Dr Ordonez Outpatient Specialists: [ ] Inpatient Consults: [ ] PROBLEM LIST: Acute mild enteritis, POA Acute abdominal pain, POA Hypertension, POA DM type II, POA Hepatic steatosis, POA Hepatomegaly, POA Hepatic lesion seen on CT of the abdomen,hyperenhanced lesion in the right hepatic lobe measuring 1.5 x 1.6 x 1.2 cm imaging features are indeterminate Lumbar central disc protrusions L3-L5, S1 INTERVAL HISTORY: 60-year-old female with past medical history of DM type 2, who presented to ED via private vehicle with complaint of intractable abdominal pain with associated episodic vomiting and found to have mild enteritis. Per patient she was evaluated by Dr. Jasso and underwent endoscopy, and according to patient she was informed by Dr. Jasso that there is no significant findings. Patient was also evaluated in [place] recently in underwent x-ray and ultrasonography, cannot confirm what exactly is the finding, they do not have the official reading of the ultrasound what they have is only a picture. She presented today in ED with above-mentioned complaint, CTA of the abdomen was done and showed mild acute enteritis, hyperenhancing lesion in the right hepatic lobe measuring 1.5 x 1.6 x 1.2 cm imaging features are indeterminate. There is also hepatic steatosis with hepatomegaly. Her CBC did not reveal any acute infection or anemia, her chemistry unrevealing for any acute electrolyte or kidney dysfunction. In ED patient was given Protonix, IV morphine with no significant improvement on her abdominal pain. On examination patient is crying, abdomen is soft, nondistended, some tenderness on the left upper quadrant on palpation. Patient denies any headache, chest pain, shortness of breath, diarrhea, cough, or flu- like symptoms. Patient denies any smoking, alcohol intake, or illicit drug use. 05/11 - patient is seen and evaluated at the bedside. Patient is accompanied by multiple family members as well as primary nurse. Patient is sitting up in bed crying and reports abdominal pain is severe. Patient abdomen is soft and nondistended. On exam, patient is guarding and showing signs of tenderness on palpation to the left flank region. Patient reports pain radiates from her back to her flank region. Patient's CT scan shows diffuse fatty infiltration an en largement at 17.2 cm. Hyper enhancing lesions seen in the right hepatic lobe measuring 1.5 x 1.6 x 1.2 cm. Spleen is unremarkable in size and attenuation. A left adrenal nodule measuring 1 x 0.6 cm present. Small central disc protrusions seen at L3 down to S1 levels causing mild thecal sac indentation. GI has been consulted recommendations PLAN SUMMARY: Supplemental oxygen as needed Keep NPO Obtain MRCP Consult GI Pain medication as needed Antiemetics as needed Protonix b.i.d. Obtain tumor markers Repeat a.m. labs REVIEW OF SYSTEMS: 12 point ROS reviewed with patient. Pertinent positives mentioned above. Otherwise negative. PHYSICAL EXAM: GENERAL: alert, weak, awake oriented x 3 HEENT: EOMI, Sclera non icteric, moist mucosa NECK: Supple, no JVD, trachea midline LUNGS: Clear breath sounds bilaterally. No wheezes HEART: Regular rate and rhythm. Normal S1 and S2, without murmurs ABD: Abdomen soft, nontender. Bowel sounds present, tenderness to left upper quadrant on palpation EXT: No clubbing cyanosis or edema NEURO: Alert and oriented to person, follows commands Vital Signs (last 8hr) Date Time Temp Pulse Resp B/P (MAP) Pulse Ox O2 Delivery O2 Flow Rate FiO2 05/11/25 08:00 97.5 83 20 128/79 98 Room Air 05/11/25 07:25 92 18 N/A Room Air 21 LABS: Hematology Labs: Test 05/11/25 05:05 Range/Units White Blood Count 5.1 4.8-10.8 K/uL Red Blood Count 4.05 4.00-5.50 MIL/uL Hemoglobin 12.9 12.0-16.0 g/dL Hematocrit 39.0 36-48 % Mean Corpuscular Volume 96.3 79-99 fL Mean Corpuscular Hemoglobin 31.9 27.0-33.0 pg Mean Corpuscular Hemoglobin Concent 33.1 32.0-36.0 g/dL Red Cell Distribution Width 13.1 11.0-15.5 % Platelet Count 179 130-400 K/uL Mean Platelet Volume 10.2 7.5-10.5 fL Immature Granulocyte % (Auto) 0.2 0-1 % Neutrophils (%) (Auto) 35.2 L 40.0-77.0 % Lymphocytes (%) (Auto) 55.2 H 21.0-51.0 % Monocytes (%) (Auto) 6.8 3.0-13.0 % Eosinophils (%) (Auto) 2.2 0.0-8.0 % Basophils (%) (Auto) 0.4 0.0-5.0 % Neutrophils # (Auto) 1.8 1.8-7.7 K/uL Lymphocytes # (Auto) 2.8 1.0-4.8 K/uL Monocytes # (Auto) 0.4 0.1-1.0 K/uL Eosinophils # (Auto) 0.11 0.00-0.70 K/uL Basophils # (Auto) 0.02 0.00-0.20 K/uL Absolute Immature Granulocyte (auto 0.01 0-1 K/uL Nucleated Red Blood Cells 0.0 0.0-0.19 % Chemistry Labs: Test 05/11/25 12:05 05/11/25 05:05 05/10/25 20:09 05/10/25 14:11 Range/Units Whole Blood Glucose 130 H 70-110 MG/DL Sodium Level 135 L 136-145 mmol/L Potassium Level 4.1 3.5-5.1 mmol/L Chloride Level 102 101-111 mmol/L Carbon Dioxide Level 20 L 21-32 mmol/L Blood Urea Nitrogen 10 7-18 mg/dL Creatinine 0.6 0.5-1.0 mg/dL Glomerular Filtration Rate Calc 103 >90 mL/min Random Glucose 131 H 70-105 mg/dL Total Calcium 8.2 L 8.5-10.1 mg/dL Phosphorus Level 3.8 2.5-4.9 mg/dL Magnesium Level 1.60 L 1.80-2.40 mg/dL Lactic Acid Level 0.9 0.8-2.5 mmol/L Total Bilirubin 0.6 0.2-1.0 mg/dL Direct Bilirubin 0.1 0.0-0.3 mg/dL Aspartate Amino Transf (AST/SGOT) 13 10-37 U/L Alanine Aminotransferase (ALT/SGPT) 22 12-78 U/L Alkaline Phosphatase 127 50-136 U/L Troponin I High Sensitivity 25 4-50 ng/L Total Protein 7.3 6.0-8.3 g/dL Albumin 3.9 3.5-5.0 g/dL Lipase 59 16-77 U/L DIAGNOSTICS / RADIOLOGY RESULTS: PATIENT: KRUNAL LEWIS MR#: [id number] : 1965 SEX: F AGE: 60 LOCATION: [facility] ORDER 11 STATUS: REG ER REPORT#: [id number] SERVICE 10 REASON: Abdominal Pain ORDERING PHYSICIAN: ARJUN BRICE PROCEDURE: ABD PEL W - CT ABDOMEN/PELVIS W/CONTRAST ADDENDUM REPORT ADDENDUM: Results were shared by telephone at 06:33 PM EST on 05-10-2025 and acknowledged by DIGITAL FORENSIC EXAMINER JERRY Mcghee. /[place] EXAMINATION: CT Abdomen and Pelvis with Intravenous Contrast CLINICAL INDICATION: Abdominal pain. TECHNIQUE: Contrast-enhanced CT of the abdomen and pelvis was performed. Axial images were acquired and reconstructed in multiplanar projections using soft tissue and bone algorithms. Delayed urographic phase images were obtained. RADIATION DOSE: CTDIvol: 11 mGy DLP: 500.9 mGycm COMPARISON: Prior CT abdomen and pelvis with contrast dated January 22, 2025, which demonstrated post-cholecystectomy and post-hysterectomy status without acute abnormality.FINDINGS: Lower Chest: No acute abnormality is identified in the visualized lung bases. Liver: The liver demonstrates diffuse fatty infiltration and is enlarged, measuring approximately 17.2 cm in the midclavicular line. A hyperenhancing lesion is again seen in the right hepatic lobe measuring approximately 1.5 1.6 1.2 cm, series 2, image 20/96. It is not visualized in the delayed images in the available field of view. No additional focal hepatic lesion is identified. Biliary System: Post-cholecystectomy state is noted. There is mild prominence of the bilobar intrahepatic bile ducts and the common bile duct, which measures up to 1.0 cm, with smooth distal tapering and no evidence of obstructing calculus or mass. These findings are favored to be physiologic in the post-cholecystectomy setting. Spleen: The spleen is unremarkable in size and attenuation. Pancreas: The pancreas is unremarkable without focal lesion or pancreatic ductal dilatation. Adrenal Glands: A left adrenal nodule measuring approximately 1.0 0.6 cm is present. The right adrenal gland is unremarkable. Kidneys and Urinary Tract: A right renal parapelvic cyst measures approximately 3.0 1.4 cm. No hydroureteronephrosis is seen. Delayed urographic phase images demonstrate normal and symmetric contrast excretion through both renal pelvicalyceal systems and ureters. No renal, ureteral, vesical calculus is identified. Bowel and Appendix: Multiple fluid-filled small bowel loops are present in the lower abdomen without significant dilatation, compatible with mild acute enteritis. A moderate amount of fecal material is present within the colon. The appendix is unremarkable, series 2, image 58/96. Mesentery and Peritoneal Cavity: No free intraperitoneal air or fluid is identified. Vasculature: The abdominal aorta demonstrates atheromatous calcification without aneurysm or dissection. Pelvic Organs: Post-hysterectomy status is noted. No adnexal mass is identified. Abdominal Wall: No significant abnormality is identified. Bones and Spine: There is minimal levoscoliosis of the lumbar spine with the apex at L3. Mild degenerative changes are present. Small central disc protrusions are seen at the L3L4, L4L5, and L5S1 levels, causing mild thecal sac indentation.IMPRESSION: * Mild acute enteritis. * Hyperenhancing lesion in the right hepatic lobe measuring 1.5 1.6 1.2 cm; imaging features are indeterminate. Further characterization with dedicated liver MRI is recommended if clinically warranted. * Post-cholecystectomy state with mild physiologic prominence of the intrahepatic bile ducts and common bile duct measuring up to 1.0 cm, without evidence of obstruction, stable compared with prior imaging. * Hepatic steatosis with hepatomegaly. * Bosniak class I right renal cyst. * Small left adrenal nodule, stable in appearance. * As compared with the prior CT examination dated January 22, 2025, mild acute enteritis is a new findings. The rest of the findings remain stable. /[place] DICTATED BY: ANGELY RENTERIA MD DATE: 05/10/25 185 ELECTRONICALLY SIGNED BY: DATE: EXAMINATION: CT Abdomen and Pelvis with Intravenous Contrast CLINICAL INDICATION: Abdominal pain. TECHNIQUE: Contrast-enhanced CT of the abdomen and pelvis was performed. Axial images were acquired and reconstructed in multiplanar projections using soft tissue and bone algorithms. Delayed urographic phase images were obtained. RADIATION DOSE: CTDIvol: 11 mGy DLP: 500.9 mGycm COMPARISON: Prior CT abdomen and pelvis with contrast dated January 22, 2025, which demonstrated post-cholecystectomy and post-hysterectomy status without acute abnormality.FINDINGS: Lower Chest: No acute abnormality is identified in the visualized lung bases. Liver: The liver demonstrates diffuse fatty infiltration and is enlarged, measuring approximately 17.2 cm in the midclavicular line. A hyperenhancing lesion is again seen in the right hepatic lobe measuring approximately 1.5 1.6 1.2 cm, series 2, image 20/96. It is not visualized in the delayed images in the available field of view. No additional focal hepatic lesion is identified. Biliary System: Post-cholecystectomy state is noted. There is mild prominence of the bilobar intrahepatic bile ducts and the common bile duct, which measures up to 1.0 cm, with smooth distal tapering and no evidence of obstructing calculus or mass. These findings are favored to be physiologic in the post-cholecystectomy setting. Spleen: The spleen is unremarkable in size and attenuation. Pancreas: The pancreas is unremarkable without focal lesion or pancreatic ductal dilatation. Adrenal Glands: A left adrenal nodule measuring approximately 1.0 0.6 cm is present. The right adrenal gland is unremarkable. Kidneys and Urinary Tract: A right renal parapelvic cyst measures approximately 3.0 1.4 cm. No hydroureteronephrosis is seen. Delayed urographic phase images demonstrate normal and symmetric contrast excretion through both renal pelvicalyceal systems and ureters. No renal, ureteral, vesical calculus is identified. Bowel and Appendix: Multiple fluid-filled small bowel loops are present in the lower abdomen without significant dilatation, compatible with mild acute enteritis. A moderate amount of fecal material is present within the colon. The appendix is unremarkable, series 2, image 58/96. Mesentery and Peritoneal Cavity: No free intraperitoneal air or fluid is identified. Vasculature: The abdominal aorta demonstrates atheromatous calcification without aneurysm or dissection. Pelvic Organs: Post-hysterectomy status is noted. No adnexal mass is identified. Abdominal Wall: No significant abnormality is identified. Bones and Spine: There is minimal levoscoliosis of the lumbar spine with the apex at L3. Mild degenerative changes are present. Small central disc protrusions are seen at the L3L4, L4L5, and L5S1 levels, causing mild thecal sac indentation.IMPRESSION: * Mild acute enteritis. * Hyperenhancing lesion in the right hepatic lobe measuring 1.5 1.6 1.2 cm; imaging features are indeterminate. Further characterization with dedicated liver MRI is recommended if clinically warranted. * Post-cholecystectomy state with mild physiologic prominence of the intrahepatic bile ducts and common bile duct measuring up to 1.0 cm, without evidence of obstruction, stable compared with prior imaging. * Hepatic steatosis with hepatomegaly. * Bosniak class I right renal cyst. * Small left adrenal nodule, stable in appearance. * As compared with the prior CT examination dated January 22, 2025, mild acute enteritis is a new findings. The rest of the findings remain stable. /[place] DICTATED BY: ANGELY RENTERIA MD DATE: 05/10/251818 ELECTRONICALLY SIGNED BY: ANGELY RENTERIA MD DATE: 05/10/251818 ] PLAN NEURO: Minimize central acting medications as possible. Maintain fall precautions, adequate lighting during the day PULMONARY: Supplemental 02 as needed. Maintain aspiration precautions at all times CARDIOVASCULAR: Follow hemodynamics. Vital signs per facility protocol GI & NUTRITION: Continue with nutritional support. Continue stool softeners and laxatives as needed. KIDNEYS & ELECTROLYTES: Strict monitoring of intake, output and overall fluid balance. Avoid nephrotoxic medications to the extent possible. Medications to be dosed according to renal function. Monitor electrolytes and replace as needed ENDOCRINE: Maintain blood glucose between 100-180 at all times. Hypoglycemia protocol in place INFECTIOUS DISEASE: Trend temperature, WBC and procalcitonin level Follow cultures, deescalate antibiotics as soon as possible. Panculture if new onset fever ONCOLOGY/HEMATOLOGY/COAGULATION: Monitor for s/s of bleeding Monitor hemoglobin, coagulation studies as needed SKIN: Pressure ulcer prevention per facility protocol Specialty mattress ORTHO/REHAB: Continue PT/OT Prophylaxis: Continue GI and DVT prophylaxis Code Status: Full Resuscitation Disposition: TBD ATTESTATION BY PHYSICIAN I have evaluated the patient chart, medical records, and spoke with appropriate staff. I reviewed the documentation, medical decision making, and treatment plan as noted by the mid-level provider above. I agree with the findings and plan of care. Javy Goins MD, ECTOR N FNP May 11, 2025 13:29
[2025-05-12] VITALS (8 sets, daily range): BP systolic 115–138; BP diastolic 70–81; PULSE 71–79; RESP 16–20; TEMP 97.4–98.1; O2SAT 96–98
--- NOTE | 2025-05-12 04:45 | NUR ---
ADMISSION PATIENT ARRIVED TO ROOM 323 VIA STRETCHER, PATIENT AMBULATED TO BED WITHOUT DIFFICULTY. DENIES PAIN AT THIS TIME. PLAN OF CARE REVIEWED WITH PATIENT. ORIENTED PATIENT TO ROOM, CALL BUTTON, REMOTE CONTROL, FALL PREVENTION, BED SAFETY, IV SAFETY. NON SKID SOCKS APPLIED, PATIENT REQUESTED TO STAY IN REGULAR CLOTHING FOR COMFORT, REFUSED TO PLACE GOWN. LR INFUSING AT 100ML/HR TO A LEFT AC 18G, FLUSHES WITHOUT DIFFICULTY. Addendum: 05/12/25 at 0710 by FREDERIC PENA RN RN WRONG PATIENT ENTRY
[2025-05-12 05:02] LABS: NUCLEATED RED BLOOD CELLS 0.0 % (0.0-0.19); PLATELET COUNT (AUTO) 187.0 K/uL (130-400); RED BLOOD CELL COUNT(AUTO) 4.15 MIL/uL (4.00-5.50); RED CELL DISTRIBUTION WIDTH 12.8 % (11.0-15.5); WHITE BLOOD COUNT (AUTO) 5.1 K/uL (4.8-10.8)
[2025-05-12 05:22] LABS: CREATININE 0.5 mg/dL (0.5-1.0); GLOMERULAR FILTR. RATE CALC 107.0 mL/min (>90); GLUCOSE,RANDOM 119.0 mg/dL (70-105); PHOSPHORUS 3.2 mg/dL (2.5-4.9); SODIUM SERUM 137.0 mmol/L (136-145); UREA NITROGEN, BLOOD 7.0 mg/dL (7-18)
[2025-05-12] MEDS ORDERED: GADOTERATE MEGLUMINE 10 MMOL/20 ML VIAL IV ONE (10:29)
[2025-05-13] VITALS (9 sets, daily range): BP systolic 119–147; BP diastolic 68–84; PULSE 74–96; RESP 16–20; TEMP 98–98.3; O2SAT 98
--- NOTE | 2025-05-13 09:27 | PN ---
[facility] PROGRESS NOTE BACK DATED ENTRY FOR 05/12/2025 AT 11:45 Date Patient Seen: 2024 Time of Visit: 11:45 Supervising Physician: Dr. Ricci Roth Primary Care Physician: Dr Ordonez Outpatient Specialists: [ ] Inpatient Consults: [ ] PROBLEM LIST: Acute mild enteritis, POA Acute abdominal pain, POA Hypertension, POA DM type II, POA Hepatic steatosis, POA Hepatomegaly, POA Hepatic lesion seen on CT of the abdomen,hyperenhanced lesion in the right hepatic lobe measuring 1.5 x 1.6 x 1.2 cm imaging features are indeterminate Lumbar central disc protrusions L3-L5, S1 Electrolyte derangement syndrome:Hypomagnesemia INTERVAL HISTORY: 60-year-old female with past medical history of DM type 2, who presented to ED via private vehicle with complaint of intractable abdominal pain with associated episodic vomiting and found to have mild enteritis. Per patient she was evaluated by Dr. Jasso and underwent endoscopy, and according to patient she was informed by Dr. Jasso that there is no significant findings. Patient was also evaluated in [place] recently in underwent x-ray and ultrasonography, cannot confirm what exactly is the finding, they do not have the official reading of the ultrasound what they have is only a picture. She presented today in ED with above-mentioned complaint, CTA of the abdomen was done and showed mild acute enteritis, hyperenhancing lesion in the right hepatic lobe measuring 1.5 x 1.6 x 1.2 cm imaging features are indeterminate. There is also hepatic steatosis with hepatomegaly. Her CBC did not reveal any acute infection or anemia, her chemistry unrevealing for any acute electrolyte or kidney dysfunction. In ED patient was given Protonix, IV morphine with no significant improvement on her abdominal pain. On examination patient is crying, abdomen is soft, nondistended, some tenderness on the left upper quadrant on palpation. Patient denies any headache, chest pain, shortness of breath, diarrhea, cough, or flu- like symptoms. Patient denies any smoking, alcohol intake, or illicit drug use. 05/11 - patient is seen and evaluated at the bedside. Patient is accompanied by multiple family members as well as primary nurse. Patient is sitting up in bed crying and reports abdominal pain is severe. Patient abdomen is soft and nondistended. On exam, patient is guarding and showing signs of tenderness on palpation to the left flank region. Patient reports pain radiates from her back to her flank region. Patient's CT scan shows diffuse fatty infiltration an enlargement at 17.2 cm. Hyper enhancing lesions seen in the right hepatic lobe measuring 1.5 x 1.6 x 1.2 cm. Spleen is unremarkable in size and attenuation. A left adrenal nodule measuring 1 x 0.6 cm present. Small central disc protrusions seen at L3 down to S1 levels causing mild thecal sac indentation. GI has been consulted recommendations 05/12-patient examined his seen while resting in bed with spouse present awake alert and oriented. Accompanied by patient's bedside nurse. Nursing staff report no adverse events occurring overnight impacting the patient. Patient's vital signs were stable. Patient is afebrile. Patient has constant critical excruciating left flank abdominal pain. CT abdomen results were unremarkable for further clinical workup of this. Patient also has decompression of spine wearing L1 and asked to. Awaiting results were tumor markers, a.m. labs we will be ordered for tomorrow, GI has been consulted because of hepatic mass and awaiting results of MRCP. Once results are known patient can voice started on a clear liquid diet. Reviewed and discussed with patient's family members present laboratory results, vital signs, and diagnostic tests results. After discussion there were no other questions or concerns raised. Following recommendations of GI specialists. Further orders per course of stay. A.m. labs ordered. PLAN SUMMARY: Supplemental oxygen as needed Keep NPO Obtain MRCP Consult GI Pain medication as needed Antiemetics as needed Protonix b.i.d. Obtain tumor markers Repeat a.m. labs REVIEW OF SYSTEMS: 12 point ROS reviewed with patient. Pertinent positives mentioned above. Other gonzalez negative. PHYSICAL EXAM: GENERAL: alert, weak, awake oriented x 3 HEENT: EOMI, Sclera non icteric, moist mucosa NECK: Supple, no JVD, trachea midline LUNGS: Clear breath sounds bilaterally. No wheezes HEART: Regular rate and rhythm. Normal S1 and S2, without murmurs ABD: Abdomen soft, nontender. Bowel sounds present, tenderness to left upper quadrant on palpation EXT: No clubbing cyanosis or edema NEURO: Alert and oriented to person, follows commands Vital Signs (last 8hr) Date Time Temp Pulse Resp B/P (MAP) Pulse Ox O2 Delivery O2 Flow Rate FiO2 05/13/25 07:36 74 18 N/A Room Air 21 05/13/25 04:10 98.1 75 16 121/68 98 Room Air LABS: Hematology Labs: Test 05/12/25 04:54 Range/Units White Blood Count 5.1 4.8-10.8 K/uL Red Blood Count 4.15 4.00-5.50 MIL/uL Hemoglobin 13.3 12.0-16.0 g/dL Hematocrit 40.2 36-48 % Mean Corpuscular Volume 96.9 79-99 fL Mean Corpuscular Hemoglobin 32.0 27.0-33.0 pg Mean Corpuscular Hemoglobin Concent 33.1 32.0-36.0 g/dL Red Cell Distribution Width 12.8 11.0-15.5 % Platelet Count 187 130-400 K/uL Mean Platelet Volume 10.2 7.5-10.5 fL Nucleated Red Blood Cells 0.0 0.0-0.19 % Chemistry Labs: Test 05/13/25 05:18 05/13/25 04:48 05/12/25 04:54 05/11/25 13:47 Range/Units Whole Blood Glucose 125 H 70-110 MG/DL Magnesium Level 1.60 L 1.80-2.40 mg/dL Sodium Level 137 136-145 mmol/L Potassium Level 3.7 3.5-5.1 mmol/L Chloride Level 104 101-111 mmol/L Carbon Dioxide Level 15 L 21-32 mmol/L Blood Urea Nitrogen 7 7-18 mg/dL Creatinine 0.5 0.5-1.0 mg/dL Glomerular Filtration Rate Calc 107 >90 mL/min Random Glucose 119 H 70-105 mg/dL Total Calcium 8.3 L 8.5-10.1 mg/dL Phosphorus Level 3.2 2.5-4.9 mg/dL Amylase Level 79 25-115 U/L Tumor Marker Alpha Fetoprotein <1.8 0.0-9.2 ng/mL DIAGNOSTICS / RADIOLOGY RESULTS: [ ] PLAN NEURO: Minimize central acting medications as possible. Maintain fall precautions, adequate lighting during the day PULMONARY: Supplemental 02 as needed. Maintain aspiration precautions at all times CARDIOVASCULAR: Follow hemodynamics. Vital signs per facility protocol GI & NUTRITION: Continue with nutritional support. Continue stool softeners and laxatives as needed. KIDNEYS & ELECTROLYTES: Strict monitoring of intake, output and overall fluid balance. Avoid nephrotoxic medications to the extent possible. Medications to be dosed according to renal function. Monitor electrolytes and replace as needed ENDOCRINE: Maintain blood glucose between 100-180 at all times. Hypoglycemia protocol in place INFECTIOUS DISEASE: Trend temperature, WBC and procalcitonin level Follow cultures, deescalate antibiotics as soon as possible. Panculture if new onset fever ONCOLOGY/HEMATOLOGY/COAGULATION: Monitor for s/s of bleeding Monitor hemoglobin, coagulation studies as needed SKIN: Pressure ulcer prevention per facility protocol Specialty mattress ORTHO/REHAB: Continue PT/OT Prophylaxis: Continue GI and DVT prophylaxis Code Status: Full Resuscitation Disposition: NAOMI MCLEOD AGACNP May 13, 2025 09:27
[2025-05-13 09:31] LABS: NUCLEATED RED BLOOD CELLS 0.0 % (0.0-0.19); PLATELET COUNT (AUTO) 177.0 K/uL (130-400); RED BLOOD CELL COUNT(AUTO) 4.02 MIL/uL (4.00-5.50); RED CELL DISTRIBUTION WIDTH 13.0 % (11.0-15.5); WHITE BLOOD COUNT (AUTO) 5.6 K/uL (4.8-10.8)
[2025-05-13 09:43] LABS: CREATININE 0.6 mg/dL (0.5-1.0); GLOMERULAR FILTR. RATE CALC 103.0 mL/min (>90); GLUCOSE,RANDOM 124.0 mg/dL (70-105); SODIUM SERUM 136.0 mmol/L (136-145); UREA NITROGEN, BLOOD 4.0 mg/dL (7-18)
[2025-05-13 09:48] LABS: ASPARTATE AMINOTRANSFERASE 14.0 U/L (10-37); TOTAL PROTEIN, SERUM 5.6 g/dL (6.0-8.3)
--- NOTE | 2025-05-13 13:20 | HMCIMG ---
STUDY MR abdomen with intravenous contrast and MRCP HISTORY Hepatic lesions; prior CT abdomen pelvis demonstrating indeterminate hyperenhancing right hepatic lesion and hepatic steatosis; post-cholecystectomy TECHNIQUE Multiplanar, multisequence MRI of the abdomen including MRCP, performed before and after intravenous gadolinium-based contrast administration COMPARISON CT abdomen pelvis with intravenous contrast 05/10/2025 and 01/21/2025 FINDINGS LOWER THORAX Trace bilateral pleural effusions are present with mild dependent subpleural scarring and atelectasis in the visualized lung bases. LIVER The liver is mildly enlarged, measuring up to 15.4 cm in craniocaudal dimension, with diffuse loss of signal on opposed-phase imaging, in keeping with hepatic steatosis. In segment of the right hepatic lobe there is a 2.1 x 1.7 cm well-circumscribed lesion that is iso- to mildly hypointense on T1, mildly hyperintense on T2, and demonstrates rapid homogeneous arterial hyperenhancement with prompt isointensity to background liver on portal venous and delayed phases, consistent with a flash-filling hemangioma corresponding to the previously indeterminate hyperenhancing lesion. No additional suspicious hepatic mass or restricted diffusion is identified. GALLBLADDER AND BILE DUCTS The gallbladder is surgically absent. The common bile duct measures up to 1.2 cm in maximal diameter with smooth tapering toward the ampulla and no intraluminal filling defect or abrupt cutoff; the intrahepatic bile ducts are not significantly dilated, compatible with post-cholecystectomy physiologic prominence. The cystic duct remnant is tubular and mildly dilated up to 0.7 cm with a relatively prolonged supraduodenal course inserting into the supraduodenal portion of the common bile duct; no obstructing stone or mass is seen along its course. No gallstones or choledocholithiasis are identified on MRCP. PANCREAS The pancreas demonstrates normal parenchymal signal and enhancement. No peripancreatic fluid collection or necrosis is seen. SPLEEN Spleen is normal in size and signal with no focal lesion. ADRENALS A small left adrenal nodule is again seen, stable in size and signal characteristics compared with prior CT, compatible with a benign adenoma. Right adrenal gland is unremarkable. KIDNEYS Kidneys are normal in size and cortical thickness. A 2.8 cm non-enhancing simple cortical cyst is present in the posterior cortex of the right mid pole, consistent with a Bosniak class I cyst. No solid renal mass, hydronephrosis or perinephric collection is identified. STOMACH AND BOWEL The stomach appears grossly unremarkable on this limited evaluation. There is fecal loading throughout the visualized large bowel without bowel wall thickening or surrounding inflammatory change to suggest active enteritis on this examination. LYMPH NODES No pathologically enlarged abdominal lymph nodes are identified. VASCULATURE Abdominal aorta and major visceral arteries are normal in course and caliber without aneurysm or dissection. Hepatic and portal veins are patent without thrombus. PERITONEUM AND OTHER No ascites or peritoneal nodularity is seen. No focal intra-abdominal collection is identified. IMPRESSION * Flash-filling hemangioma in segment of the right hepatic lobe, now measuring approximately 2.1 x 1.7 cm, accounting for the previously indeterminate hyperenhancing right hepatic lesion on CT; no additional suspicious hepatic mass identified. * Post-cholecystectomy state with mildly dilated common bile duct and mildly dilated, elongated cystic duct remnant, without evidence of choledocholithiasis or obstructing mass; appearances are in keeping with stable post-cholecystectomy physiology compared with prior CT. * Hepatomegaly with hepatic steatosis; Bosniak class I right renal cortical cyst; stable benign-appearing small left adrenal nodule; trace bilateral pleural effusions with basal subpleural scarring; and fecal loading of the large bowel, collectively representing incidental and chronic background findings without acute intra-abdominal complication on this study. /[place]
[2025-05-13] MEDS: LIDOCAINE 4% ADH..PATCH TP SCH (18:34)
--- NOTE | 2025-05-13 20:16 | PN ---
[facility] PROGRESS NOTE Date Patient Seen: May 13, 2025 Time of Visit: 20:16 Supervising Physician: Dr. Ricci Roth Primary Care Physician: Dr Ordonez Outpatient Specialists: [ ] Inpatient Consults: [ ] PROBLEM LIST: Acute mild enteritis, POA Acute abdominal pain, POA Hepatic steatosis, POA Hepatomegaly, POA Lumbar central disc protrusions L3-L5, S1 causing mild thecal sac indentation Electrolyte derangement syndrome:Hypomagnesemia Bosniak class I right renal cyst per CT results CHRONIC PROBLEM LIST: Hypertension Diabetes mellitus type 2 Hepatic lesion seen on CT of the abdomen,hyperenhanced lesion in the right hepatic lobe measuring 1.5 x 1.6 x 1.2 cm imaging features are indeterminate INTERVAL HISTORY: 60-year-old female with past medical history of DM type 2, who presented to ED via private vehicle with complaint of intractable abdominal pain with associated episodic vomiting and found to have mild enteritis. Per patient she was evaluated by Dr. Jasso and underwent endoscopy, and according to patient she was informed by Dr. Jasso that there is no significant findings. Patient was also evaluated in [place] recently in underwent x-ray and ultrasonography, cannot confirm what exactly is the finding, they do not have the official reading of the ultrasound what they have is only a picture. She presented today in ED with above-mentioned complaint, CTA of the abdomen was done and showed mild acute enteritis, hyperenhancing lesion in the right hepatic lobe measuring 1.5 x 1.6 x 1.2 cm imaging features are indeterminate. There is also hepatic steatosis with hepatomegaly. Her CBC did not reveal any acute infection or anemia, her chemistry unrevealing for any acute electrolyte or kidney dysfunction. In ED patient was given Protonix, IV morphine with no significant improvement on her abdominal pain. On examination patient is crying, abdomen is soft, nondistended, some tenderness on the left upper quadrant on palpation. Patient denies any headache, chest pain, shortness of breath, diarrhea, cough, or flu-l karla symptoms. Patient denies any smoking, alcohol intake, or illicit drug use. 05/11 - patient is seen and evaluated at the bedside. Patient is accompanied by multiple family members as well as primary nurse. Patient is sitting up in bed crying and reports abdominal pain is severe. Patient abdomen is soft and nondistended. On exam, patient is guarding and showing signs of tenderness on palpation to the left flank region. Patient reports pain radiates from her back to her flank region. Patient's CT scan shows diffuse fatty infiltration an enlargement at 17.2 cm. Hyper enhancing lesions seen in the right hepatic lobe measuring 1.5 x 1.6 x 1.2 cm. Spleen is unremarkable in size and attenuation. A left adrenal nodule measuring 1 x 0.6 cm present. Small central disc protrusions seen at L3 down to S1 levels causing mild thecal sac indentation. GI has been consulted recommendations 05/12-patient examined his seen while resting in bed with spouse present awake alert and oriented. Accompanied by patient's bedside nurse. Nursing staff report no adverse events occurring overnight impacting the patient. Patient's vital signs were stable. Patient is afebrile. Patient has constant critical excruciating left flank abdominal pain. CT abdomen results were unremarkable for further clinical workup of this. Patient also has decompression of spine wearing L1 and asked to. Awaiting results were tumor markers, a.m. labs we will be ordered for tomorrow, GI has been consulted because of hepatic mass and awaiting results of MRCP. Once results are known patient can voice started on a clear liquid diet. Reviewed and discussed with patient's family members present laboratory results, vital signs, and diagnostic tests results. After discussion there were no other questions or concerns raised. Following recommendations of GI specialists. Further orders per course of stay. A.m. labs ordered. 05/13-patient was seen and assessed while resting in bed with the head of the bed elevated, patient's daughter is there at bedside, patient is awake alert and. Patient has chronic intractable flank and lower back pain. Suspect this is related to lumbar central disc protrusions L3-L5, S1 causing mild thecal sac indentation. GI specialist, Dr Jasso and Dr. Powers at this time both we will not be planning any intervention or diagnostic tests for the patient at this time during the admission. Patient's left severe flank pain suspect related to her lumbar central disc protrusion. Since this is a holiday weekend, plan is to advance the patient's diet from clear liquids to a pureed GI soft patient has tolerates it patient was then we will be discharged home with pain medicine including lidocaine patches and Tylenol No. 3, patient then we will be instructed to follow up with primary care provider and be referred to neurosurgeon for pain management. Patient and daughter are in agreement with the plan. A.m. labs will be ordered for tomorrow. Also reviewed and discussed vital signs and medications being used. At this point further orders per course of stay. There are no other questions or concerns post after the lengthy discussion. PLAN SUMMARY: Supplemental oxygen as needed Advance diet to GI soft, pureed consistency Pain medication as needed Antiemetics as needed Protonix b.i.d. Obtain tumor markers Repeat a.m. labs REVIEW OF SYSTEMS: 12 point ROS reviewed with patient. Pertinent positives mentioned above. Otherwise negative. PHYSICAL EXAM: GENERAL: alert, weak, awake oriented x 3 HEENT: EOMI, Sclera non icteric, moist mucosa NECK: Supple, no JVD, trachea midline LUNGS: Clear breath sounds bilaterally. No wheezes HEART: Regular rate and rhythm. Normal S1 and S2, without murmurs ABD: Abdomen soft, nontender. Bowel sounds present, tenderness to left upper quadrant on palpation EXT: No clubbing cyanosis or edema NEURO: Alert and oriented to person, follows commands Vital Signs (last 8hr) Date Time Temp Pulse Resp B/P (MAP) Pulse Ox O2 Delivery O2 Flow Rate FiO2 05/13/25 16:00 98.2 96 19 147/84 99 Room Air LABS: Hematology Labs: Test 05/13/25 04:48 Range/Units White Blood Count 5.6 4.8-10.8 K/uL Red Blood Count 4.02 4.00-5.50 MIL/uL Hemoglobin 12.8 12.0-16.0 g/dL Hematocrit 37.5 36-48 % Mean Corpuscular Volume 93.3 79-99 fL Mean Corpuscular Hemoglobin 31.8 27.0-33.0 pg Mean Corpuscular Hemoglobin Concent 34.1 32.0-36.0 g/dL Red Cell Distribution Width 13.0 11.0-15.5 % Platelet Count 177 130-400 K/uL Mean Platelet Volume 10.8 H 7.5-10.5 fL Nucleated Red Blood Cells 0.0 0.0-0.19 % Chemistry Labs: Test 05/13/25 19:36 05/13/25 04:48 05/12/25 04:54 Range/Units Whole Blood Glucose 141 H 70-110 MG/DL Sodium Level 136 136-145 mmol/L Potassium Level 3.6 3.5-5.1 mmol/L Chloride Level 104 101-111 mmol/L Carbon Dioxide Level 16 L 21-32 mmol/L Blood Urea Nitrogen 4 L 7-18 mg/dL Creatinine 0.6 0.5-1.0 mg/dL Glomerular Filtration Rate Calc 103 >90 mL/min Random Glucose 124 H 70-105 mg/dL Total Calcium 7.9 L 8.5-10.1 mg/dL Magnesium Level 1.60 L 1.80-2.40 mg/dL Total Bilirubin 0.7 0.2-1.0 mg/dL Aspartate Amino Transf (AST/SGOT) 14 10-37 U/L Alanine Aminotransferase (ALT/SGPT) 15 12-78 U/L Alkaline Phosphatase 67 50-136 U/L Total Protein 5.6 L 6.0-8.3 g/dL Albumin 2.8 L 3.5-5.0 g/dL Phosphorus Level 3.2 2.5-4.9 mg/dL Amylase Level 79 25-115 U/L DIAGNOSTICS / RADIOLOGY RESULTS: [ ] PLAN NEURO: Minimize central acting medications as possible. Maintain fall precautions, adequate lighting during the day PULMONARY: Supplemental 02 as needed. Maintain aspiration precautions at all times CARDIOVASCULAR: Follow hemodynamics. Vital signs per facility protocol GI & NUTRITION: Continue with nutritional support. Continue stool softeners and laxatives as needed. KIDNEYS & ELECTROLYTES: Strict monitoring of intake, output and overall fluid balance. Avoid nephrotoxic medications to the extent possible. Medications to be dosed according to renal function. Monitor electrolytes and replace as needed ENDOCRINE: Maintain blood glucose between 100-180 at all times. Hypoglycemia protocol in place INFECTIOUS DISEASE: Trend temperature, WBC and procalcitonin level Follow cultures, deescalate antibiotics as soon as possible. Panculture if new onset fever ONCOLOGY/HEMATOLOGY/COAGULATION: Monitor for s/s of bleeding Monitor hemoglobin, coagulation studies as needed SKIN: Pressure ulcer prevention per facility protocol Specialty mattress ORTHO/REHAB: Continue PT/OT Prophylaxis: Continue GI and DVT prophylaxis Code Status: Full Resuscitation Disposition: NAOMI MCLEOD AGAP May 13, 2025 20:16
[2025-05-14 00:12] VITALS: BP 135/79; PULSE 76; RESP 18; TEMP 97.9
[2025-05-14 04:31] VITALS: BP 124/76; PULSE 72; RESP 18; TEMP 98.5
[2025-05-14 06:08] LABS: NUCLEATED RED BLOOD CELLS 0.0 % (0.0-0.19); PLATELET COUNT (AUTO) 167.0 K/uL (130-400); RED BLOOD CELL COUNT(AUTO) 3.97 MIL/uL (4.00-5.50); RED CELL DISTRIBUTION WIDTH 12.8 % (11.0-15.5); WHITE BLOOD COUNT (AUTO) 3.8 K/uL (4.8-10.8)
[2025-05-14] MEDS: MAGNESIUM 2GM PREMIX 50ML 50 ML IV PRN (06:21)
[2025-05-14 07:30] VITALS: O2SAT 99
[2025-05-14 08:00] VITALS: BP 122/68; PULSE 75; RESP 18; TEMP 98
[2025-05-14 12:00] VITALS: BP 128/73; PULSE 76; RESP 18; TEMP 98
[2025-05-14 12:39] LABS: CREATININE 0.7 mg/dL (0.5-1.0); GLOMERULAR FILTR. RATE CALC 99.0 mL/min (>90); GLUCOSE,RANDOM 274.0 mg/dL (70-105); SODIUM SERUM 136.0 mmol/L (136-145); UREA NITROGEN, BLOOD 5.0 mg/dL (7-18)
[2025-05-14 12:44] LABS: ASPARTATE AMINOTRANSFERASE 15.0 U/L (10-37); TOTAL PROTEIN, SERUM 6.0 g/dL (6.0-8.3)
[2025-05-14 16:00] VITALS: BP 122/74; PULSE 90; RESP 18; TEMP 98.8
--- NOTE | 2025-05-14 17:07 | DS ---
[facility] DISCHARGE SUMMARY Date Patient Seen: May 14, 2025 Time of Visit: 17:06 Supervising Physician: Dr. Ricci Roth Primary Care Physician: Dr Ordonez Outpatient Specialists: Dr. Jasso (GI) Dr Powers (GI TDS) Inpatient Consults: Dr. Jasso (GI) Dr Powers (GI TDS) PROBLEM LIST: Acute mild enteritis, POA Acute abdominal pain, POA Hepatic steatosis, POA Hepatomegaly, POA Lumbar central disc protrusions L3-L5, S1 causing mild thecal sac indentation Electrolyte derangement syndrome:Hypomagnesemia Bosniak class I right renal cyst per CT results CHRONIC PROBLEM LIST: Hypertension Diabetes mellitus type 2 HOSPITAL COURSE: Patient was admitted clinically worked up for abdominal pain, patient had two review symptoms, diagnostic tests, and the patient's health history determined the diagnostic EGD was not warranted during this admission process. Patient can follow up with either GI specialists as an outpatient for further evaluation treatment and management. Patient was diagnosed with a right hepatic lobe measuring 1.5 x 1.6 x 1.2 cm take can be managed in the outpatient environment by either GI specialists. Patient will be started on Protonix 40 mg p.o. daily to be taken in the morning. During the clinical workup the patient also had a CT of the abdomen/pelvis results:Lumbar central disc protrusions L3-L5, S1 causing mild thecal sac indentation. The patient we will be referred to a neurosurgeon pain management as an outpatient for further clinical workup and management of the situation. Patient will referred to Dr. Mckinney for further clinical workup and management. At this point in the admission process the patient has stable vital signs, afebrile, pain is being well controlled with pain medications, Tylenol No. 3 and the patient has tolerated a GI mechanical soft diet. The patient can be discharged to home with family care follow up with primary care provider within 2-3 days and follow up with neurosurgeon for further management of back pain. Patient and family members were in agreement with the plan. There are no other questions or concerns to be addressed at discharge. Patient will be prescribed a prescription for Protonix 40 mg p.o. daily, 30 days, 30 tablets and Tylenol No. One tablet to be taken q.6 hours a total of 10 tablets. HPI (per admitting provider) 60-year-old female with past medical history of DM type two who presented to ED via private vehicle with complaint of intractable abdominal pain with associated episodic vomiting and found to have mild enteritis. Per patient she was evaluated by Dr. Jasso and underwent endoscopy, and according to patient she was informed by Dr. Jasso that there is no significant findings. Patient was also evaluated in [place] recently in underwent x-ray and ultrasonography, cannot confirm what exactly is the finding, they do not have the official reading of the ultrasound what they have is only a picture. She presented today in ED with above-mentioned complaint, CTA of the abdomen was done and showed mild acute enteritis, hyperenhancing lesion in the right hepatic lobe measuring 1.5 x 1.6 x 1.2 cm imaging features are indeterminate. There is also hepatic steatosis with hepatomegaly. Her CBC did not reveal any acute infection or anemia, her chemistry unrevealing for any acute electrolyte or kidney dysfunction. In ED patient was given Protonix, IV morphine with no significant improvement on her abdominal pain. On examination patient is crying, abdomen is soft, nondistended, some tenderness on the left upper quadrant on palpation. Patient denies any headache, chest pain, shortness of breath, diarrhea, cough, or flu- like symptoms. Patient denies any smoking, alcohol intake, or illicit drug use. 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: [ ] PROCEDURES: as mentioned above PATIENT: KRUNAL LEWIS MR#: [id number] : 1965 SEX: F AGE: 60 LOCATION: [facility] ORDER [id number] STATUS: ADM IN REPORT#: [id number] SERVICE 132 REASON: hepatic lesions ORDERING PHYSICIAN: CLEO WALL PROCEDURE: MRCP WWO - MRCP(ABDWWO)CHOLANGIOPANCREATO STUDY MR abdomen with intravenous contrast and MRCP HISTORY Hepatic lesions; prior CT abdomen pelvis demonstrating indeterminate hyperenhancing right hepatic lesion and hepatic steatosis; post-cholecystectomy TECHNIQUE Multiplanar, multisequence MRI of the abdomen including MRCP, performed before and after intravenous gadolinium-based contrast administration COMPARISON CT abdomen pelvis with intravenous contrast 05/10/2025 and 01/21/2025 FINDINGS LOWER THORAX Trace bilateral pleural effusions are present with mild dependent subpleural scarring and atelectasis in the visualized lung bases. LIVER The liver is mildly enlarged, measuring up to 15.4 cm in craniocaudal dimension, with diffuse loss of signal on opposed-phase imaging, in keeping with hepatic steatosis. In segment of the right hepatic lobe there is a 2.1 x 1.7 cm well-circumscribed lesion that is iso- to mildly hypointense on T1, mildly hyperintense on T2, and demonstrates rapid homogeneous arterial hyperenhancement with prompt isointensity to background liver on portal venous and delayed phases, consistent with a flash-filling hemangioma corresponding to the previously indeterminate hyperenhancing lesion. No additional suspicious hepatic mass or restricted diffusion is identified. GALLBLADDER AND BILE DUCTS The gallbladder is surgically absent. The common bile duct measures up to 1.2 cm in maximal diameter with smooth tapering toward the ampulla and no intraluminal filling defect or abrupt cutoff; the intrahepatic bile ducts are not significantly dilated, compatible with post-cholecystectomy physiologic prominence. The cystic duct remnant is tubular and mildly dilated up to 0.7 cm with a relatively prolonged supraduodenal course inserting into the supraduodenal portion of the common bile duct; no obstructing stone or mass is seen along its course. No gallstones or choledocholithiasis are identified on MRCP. PANCREAS The pancreas demonstrates normal parenchymal signal and enhancement. No peripancreatic fluid collection or necrosis is seen. SPLEEN Spleen is normal in size and signal with no focal lesion. ADRENALS A small left adrenal nodule is again seen, stable in size and signal characteristics compared with prior CT, compatible with a benign adenoma. Right adrenal gland is unremarkable. KIDNEYS Kidneys are normal in size and cortical thickness. A 2.8 cm non-enhancing simple cortical cyst is present in the posterior cortex of the right mid pole, consistent with a Bosniak class I cyst. No solid renal mass, hydronephrosis or perinephric collection is identified. STOMACH AND BOWEL The stomach appears grossly unremarkable on this limited evaluation. There is fecal loading throughout the visualized large bowel without bowel wall thickening or surrounding inflammatory change to suggest active enteritis on this examination. LYMPH NODES No pathologically enlarged abdominal lymph nodes are identified. VASCULATURE Abdominal aorta and major visceral arteries are normal in course and caliber without aneurysm or dissection. Hepatic and portal veins are patent without thrombus. PERITONEUM AND OTHER No ascites or peritoneal nodularity is seen. No focal intra-abdominal collection is identified. IMPRESSION * Flash-filling hemangioma in segment of the right hepatic lobe, now measuring approximately 2.1 x 1.7 cm, accounting for the previously indeterminate hyperenhancing right hepatic lesion on CT; no additional suspicious hepatic mass identified. * Post-cholecystectomy state with mildly dilated common bile duct and mildly dilated, elongated cystic duct remnant, without evidence of choledocholithiasis or obstructing mass; appearances are in keeping with stable post-cholecystectomy physiology compared with prior CT. * Hepatomegaly with hepatic steatosis; Bosniak class I right renal cortical cyst; stable benign-appearing small left adrenal nodule; trace bilateral pleural effusions with basal subpleural scarring; and fecal loading of the large bowel, collectively representing incidental and chronic background findings without acute intra-abdominal complication on this study. /[place] DICTATED BY: BEHZAD WIGGINS MD DATE: 05/13/251418 ELECTRONICALLY SIGNED BY: BEHZAD WIGGINS MD DATE: 05/13/251418 PATIENT: KRUNAL LEWIS MR#: [id number] : 1965 SEX: F AGE: 60 LOCATION: [facility] ORDER 151 STATUS: REG ER REPORT#: [id number] SERVICE 151 REASON: Abdominal Pain ORDERING PHYSICIAN: ARJUN BRICE PROCEDURE: ABD PEL W - CT ABDOMEN/PELVIS W/CONTRAST ADDENDUM REPORT ADDENDUM: Results were shared by telephone at 06:33 PM EST on 05-10-2025 and acknowledged by [employer] BUILDER APPRENTICE JERRY Mcghee. /[place] EXAMINATION: CT Abdomen and Pelvis with Intravenous Contrast CLINICAL INDICATION: Abdominal pain. TECHNIQUE: Contrast-enhanced CT of the abdomen and pelvis was performed. Axial images were acquired and reconstructed in multiplanar projections using soft tissue and bone algorithms. Delayed urographic phase images were obtained. RADIATION DOSE: CTDIvol: 11 mGy DLP: 500.9 mGycm COMPARISON: Prior CT abdomen and pelvis with contrast dated January 22, 2025, which demonstrated post-cholecystectomy and post-hysterectomy status without acute abnormality.FINDINGS: Lower Chest: No acute abnormality is identified in the visualized lung bases. Liver: The liver demonstrates diffuse fatty infiltration and is enlarged, measuring approximately 17.2 cm in the midclavicular line. A hyperenhancing lesion is again seen in the right hepatic lobe measuring approximately 1.5 1.6 1.2 cm, series 2, image 20/96. It is not visualized in the delayed images in the available field of view. No additional focal hepatic lesion is identified. Biliary System: Post-cholecystectomy state is noted. There is mild prominence of the bilobar intrahepatic bile ducts and the common bile duct, which measures up to 1.0 cm, with smooth distal tapering and no evidence of obstructing calculus or mass. These findings are favored to be physiologic in the post-cholecystectomy setting. Spleen: The spleen is unremarkable in size and attenuation. Pancreas: The pancreas is unremarkable without focal lesion or pancreatic ductal dilatation. Adrenal Glands: A left adrenal nodule measuring approximately 1.0 0.6 cm is present. The right adrenal gland is unremarkable. Kidneys and Urinary Tract: A right renal parapelvic cyst measures approximately 3.0 1.4 cm. No hydroureteronephrosis is seen. Delayed urographic phase images demonstrate normal and symmetric contrast excretion through both renal pelvicalyceal systems and ureters. No renal, ureteral, vesical calculus is identified. Bowel and Appendix: Multiple fluid-filled small bowel loops are present in the lower abdomen without significant dilatation, compatible with mild acute enteritis. A moderate amount of fecal material is present within the colon. The appendix is unremarkable, series 2, image 58/96. Mesentery and Peritoneal Cavity: No free intraperitoneal air or fluid is identified. Vasculature: The abdominal aorta demonstrates atheromatous calcification without aneurysm or dissection. Pelvic Organs: Post-hysterectomy status is noted. No adnexal mass is identified. Abdominal Wall: No significant abnormality is identified. Bones and Spine: There is minimal levoscoliosis of the lumbar spine with the apex at L3. Mild degenerative changes are present. Small central disc protrusions are seen at the L3L4, L4L5, and L5S1 levels, causing mild thecal sac indentation.IMPRESSION: * Mild acute enteritis. * Hyperenhancing lesion in the right hepatic lobe measuring 1.5 1.6 1.2 cm; imaging features are indeterminate. Further characterization with dedicated liver MRI is recommended if clinically warranted. * Post-cholecystectomy state with mild physiologic prominence of the intrahepatic bile ducts and common bile duct measuring up to 1.0 cm, without evidence of obstruction, stable compared with prior imaging. * Hepatic steatosis with hepatomegaly. * Bosniak class I right renal cyst. * Small left adrenal nodule, stable in appearance. * As compared with the prior CT examination dated January 22, 2025, mild acute enteritis is a new findings. The rest of the findings remain stable. /[place] DICTATED BY: ANGELY RENTERIA MD DATE: 05/10/251849 ELECTRONICALLY SIGNED BY: DATE: EXAMINATION: CT Abdomen and Pelvis with Intravenous Contrast CLINICAL INDICATION: Abdominal pain. TECHNIQUE: Contrast-enhanced CT of the abdomen and pelvis was performed. Axial images were acquired and reconstructed in multiplanar projections using soft tissue and bone algorithms. Delayed urographic phase images were obtained. RADIATION DOSE: CTDIvol: 11 mGy DLP: 500.9 mGycm COMPARISON: Prior CT abdomen and pelvis with contrast dated January 22, 2025, which demonstrated post-cholecystectomy and post-hysterectomy status without acute abnormality.FINDINGS: Lower Chest: No acute abnormality is identified in the visualized lung bases. DISCHARGE MEDICATIONS: Pt hemodynamically stable and afebrile at time of discharge. PCP notified of patients admission, hospital course and discharge. PHYSICAL EXAM: GENERAL: alert, weak, awake oriented x 3 HEENT: EOMI, Sclera non icteric, moist mucosa NECK: Supple, no JVD, trachea midline LUNGS: Clear breath sounds bilaterally. No wheezes HEART: Regular rate and rhythm. Normal S1 and S2, without murmurs ABD: Abdomen soft, nontender. Bowel sounds present, tenderness to left upper quadrant on palpation EXT: No clubbing cyanosis or edema NEURO: Alert and oriented to person, follows commands FOLLOW-UP: Dr Ordonez Follow-up with PCP in 2-[address] Danilo Garrison, [address] [place] [address], [place] [address] RECOMMENDATIONS: See Discharge Instructions This case was seen and discussed with my supervising physician. More than 50 minutes spent on discharge process, including evaluation of the patient, discussion with nursing staff, medication reconciliation and follow-up appointments NAOMI MATOS [facility] May 14, 2025 17:07
--- NOTE | 2025-05-14 20:06 | NUR ---
DISCHARGE PIV DC'D PATIENT GIVEN PRESCRIPTION FILLED OUT BY NAOMI MATOS NP. PATIENT INFORMED TO SEE DR. SCHILLING. ALL QUESTIONS ANSWERED PRIOR TO DISCHARGE.
== END 2025-05-14 19:52 | disposition home or self-care (01) | DRG 392 ==
LOC: EDH 13:45 → EDHIP 19:58 → 3DH 21:41
PROVIDERS: ADMIT Internal Medicine Critical Care Medicine; ATTEND Internal Medicine Critical Care Medicine
DX: K52.9 Noninfective gastroenteritis and colitis, unspecified (principal); E27.8 Other specified disorders of adrenal gland; K76.0 Fatty (change of) liver, not elsewhere classified; E11.9 Type 2 diabetes mellitus without complications; I10 Essential (primary) hypertension; N28.1 Cyst of kidney, acquired; M51.26 Other intervertebral disc displacement, lumbar region; E83.42 Hypomagnesemia; Z90.710 Acquired absence of both cervix and uterus
CPT/HCPCS: 36415; 74177; 74183; 80048; 80053; 80076; 81001; 82105; 82150; 82948; 83605; 83690; 83735; 84100; 84484; 85025; 85027; 93005; 96374; 96375; 99285; G0378; J1171; J1815; J1885; J2270; J2405; J2470; J3475; J7030; J7120; Q9967; A9575